=== PATIENT | female | born 1945 | race Caucasian/White ===

== ENCOUNTER 2018-06-22 01:55 | Inpatient (IN) | payer MEDICARE, MEDICAID ==
[~2018-06-22] VITALS: Ht 152.4 cm; Wt 72.6 kg
[2018-06-22] MEDS ORDERED: DEXTROSE 5% WATER 1,000 ML IV ONE (02:30)
[2018-06-22] MEDS ORDERED: NITROGLYCERIN 0.4MG TABLET SL SL PRN ×2 (02:30→08:30)
[2018-06-22] MEDS ORDERED: ASPIRIN 81MG TABLET PO ONE (02:30)
[2018-06-22 02:57] LABS: BASOPHILS % 0.3 % (0.0-2.0); EOSINOPHILS % 0.4 % (0.0-5.0); HEMOGLOBIN. 10.6 g/dL (12.0-16.0); LYMPHOCYTES % 8.1 % (20.0-50.0); MEAN CORPUSCULAR HEMOGLOBIN 28.2 pg (28.0-32.0); MEAN CORPUSCULAR VOLUME 84.5 fL (81.0-99.0); MEAN PLATELET VOLUME 7.9 fl (7.4-10.4); NEUTROPHILS % 86.2 % (40.0-76.0); PLATELET 269 x1000/uL (130-400); RED BLOOD CELL COUNT 3.78 mill/uL (4.2-5.4); RED CELL DISTRIBUTION WIDTH 15.1 % (11.6-14.6)
[2018-06-22 03:03] LABS: CHLORIDE 100 mEq/L (98-107)
[2018-06-22] MEDS ORDERED: GUAIFENESIN 200MG/10ML SUGAR FREE UDC PO PRN (08:30)
[2018-06-22] MEDS ORDERED: IPRATROPIUM/ALBUTEROL 0.5-3(2.5)MG/3ML NEB INH PRN (08:30)
[2018-06-22] MEDS ORDERED: ENOXAPARIN 40MG/0.4ML SYR SUBCUT SCH (08:30)
[2018-06-22] MEDS ORDERED: DEXTROSE 50% WATER 50ML SYRINGE IV PRN (08:30)
[2018-06-22] MEDS ORDERED: DOCUSATE SODIUM 100MG CAPSULE PO PRN (08:30)
[2018-06-22] MEDS ORDERED: CLONIDINE 0.1MG TABLET PO PRN (08:30)
[2018-06-22] MEDS ORDERED: TRAMADOL 50MG TABLET PO PRN (08:30)
[2018-06-22] MEDS ORDERED: ACETAMINOPHEN 325MG TABLET PO PRN (08:30)
[2018-06-22] MEDS ORDERED: ONDANSETRON HCL 4MG/2ML INJ IV PRN (08:30)
[2018-06-22] MEDS ORDERED: MAGNESIUM/ALUMINUM HYDROXIDE/SIMETHICONE 30ML UDC PO PRN (08:30)
[2018-06-22 09:11] LABS: T4 FREE 1.38 ng/dL (0.76-1.46)
[2018-06-22] MEDS: BLOOD SUGAR DIAGNOSTIC STRIP TEST SCH ×4 (09:26→21:03)
[2018-06-22] MEDS: FAMOTIDINE 20MG TABLET PO SCH (09:28)
[2018-06-22] MEDS: ASPIRIN 325MG EC TABLET PO SCH (09:28)
[2018-06-22 09:30] VITALS: BP 143/94
[2018-06-22] MEDS: SODIUM CHLORIDE 0.9% 1,000 ML IV SCH (09:39)
[2018-06-22] MEDS: ENOXAPARIN 30MG/0.3ML SYR SUBCUT SCH (09:39)
[2018-06-22 10:25] LABS: FOLIC ACID (FOLATE) SERUM 18.7 ng/mL (>5.38)
[2018-06-22] MEDS ORDERED: LEVOFLOXACIN 500MG PREMIX 100 ML IV SCH (11:00)
[2018-06-22] MEDS: INSULIN LISPRO 100 UNITS/ML SUBCUT SCH ×3 (13:34→21:45)
[2018-06-22 13:40] VITALS: BP 140/49
[2018-06-22 15:36] VITALS: BP 132/51
[2018-06-22 17:54] LABS: CREATINE KINASE 75 IU/L (26-192)
[2018-06-22 17:59] LABS: CREATINE KINASE MB FRACTION 2.2 ng/mL (0.5-3.6)
[2018-06-22 20:00] VITALS: BP 146/54
[2018-06-22] MEDS ORDERED: HYDR-4135 PO (20:36)
[2018-06-22] MEDS ORDERED: ASPI-1079 PO (20:36)
[2018-06-22] MEDS ORDERED: AMLO10TA80 PO (20:36)
[2018-06-22] MEDS ORDERED: ATOR40TA70 PO (20:36)
[2018-06-22] MEDS ORDERED: FURO20TA4 PO (20:36)
[2018-06-22] MEDS ORDERED: LORA5SOL62 PO (20:36)
[2018-06-22] MEDS ORDERED: ZOLPIDEM TARTRATE 5MG TABLET PO PRN (21:00)
[2018-06-23 00:06] VITALS: BP 131/48
[2018-06-23 01:23] LABS: CREATINE KINASE 58 IU/L (26-192); CREATINE KINASE MB FRACTION 1.8 ng/mL (0.5-3.6)
[2018-06-23] MEDS: SODIUM CHLORIDE 0.9% 1,000 ML IV SCH ×2 (01:56→11:13)
[2018-06-23 04:00] VITALS: BP_SYST 148; BP_SYST 166; BP_DIAS 54; BP_DIAS 71
[2018-06-23 04:12] LABS: CLARITY URINE CLEAR (CLEAR); KETONES URINE NEGATIVE (NEGATIVE); LEUKOCYTE ESTERASE URINE 1+ (NEGATIVE); NITRITE URINE NEGATIVE (NEGATIVE); OCCULT BLOOD URINE NEGATIVE (NEGATIVE); PROTEIN URINE NEGATIVE (NEGATIVE); SPECIFIC GRAVITY URINE 1.006 (1.005-1.030); UROBILINOGEN URINE 0.2 E.U./dL (0.2-1.0)
[2018-06-23 04:18] LABS: COLOR URINE PALE YELLOW (YELLOW)
[2018-06-23 04:28] LABS: *COCAINE SCREEN URINE NEGATIVE (NEGATIVE); METHADONE URINE SCREEN NEGATIVE (NEGATIVE); OPIATES URINE SCREEN NEGATIVE (NEGATIVE)
[2018-06-23 04:29] LABS: *AMPHETAMINES SCREEN URINE NEGATIVE (NEGATIVE); *BARBITURATES SCREEN URINE NEGATIVE (NEGATIVE); *BENZODIAZEPINES SCREEN URINE NEGATIVE (NEGATIVE); CANNABINOID URINE SCREEN NEGATIVE (NEGATIVE); PHENCYCLIDINE URINE SCREEN NEGATIVE (NEGATIVE)
[2018-06-23] MEDS: BLOOD SUGAR DIAGNOSTIC STRIP TEST SCH ×4 (06:25→21:15)
[2018-06-23] MEDS: ASPIRIN 325MG EC TABLET PO SCH (08:33)
[2018-06-23] MEDS: ENOXAPARIN 30MG/0.3ML SYR SUBCUT SCH (08:33)
[2018-06-23] MEDS: INSULIN LISPRO 100 UNITS/ML SUBCUT SCH ×4 (08:42→21:20)
[2018-06-23] MEDS: FAMOTIDINE 20MG TABLET PO SCH (08:48)
[2018-06-23 11:56] VITALS: BP 142/54
[2018-06-23 15:24] VITALS: BP 148/64
[2018-06-23 20:00] VITALS: BP 148/67
[2018-06-24 03:38] VITALS: BP 147/43
[2018-06-24] MEDS: BLOOD SUGAR DIAGNOSTIC STRIP TEST SCH (06:22)
[2018-06-24 08:00] VITALS: BP 184/63
[2018-06-24] MEDS: ASPIRIN 325MG EC TABLET PO SCH (08:12)
[2018-06-24] MEDS: FAMOTIDINE 20MG TABLET PO SCH (08:13)
[2018-06-24] MEDS: ENOXAPARIN 30MG/0.3ML SYR SUBCUT SCH (08:13)
[2018-06-24] MEDS: INSULIN LISPRO 100 UNITS/ML SUBCUT SCH (08:17)
[2018-06-24] MEDS ORDERED: LEVOFLOXACIN 250MG PREMIX 50 ML IV SCH (11:00)
[2018-06-24 11:41] VITALS: BP 124/52
== END 2018-06-24 12:54 | disposition home health service (06) | DRG 682 ==
LOC: ER 01:55 → 6WST 05:19 → EDBEDREQTM 05:19 → EDBEDREQ 05:19 → ENRESERV 07:46 → SUPCPDRO 08:21
PROVIDERS: ADMIT Internal Medicine; ATTEND Internal Medicine
DX: N17.0 Acute kidney failure with tubular necrosis (principal); G92 Toxic encephalopathy; E87.1 Hypo-osmolality and hyponatremia; N39.0 Urinary tract infection, site not specified; B95.2 Enterococcus as the cause of diseases classified elsewhere; E11.649 Type 2 diabetes mellitus with hypoglycemia without coma; I10 Essential (primary) hypertension; Z87.440 Personal history of urinary (tract) infections
CPT/HCPCS: 36415; 71045; 76770; 80061; 80305; 82550; 82553; 82607; 82746; 82962; 83036; 83540; 83550; 83605; 83880; 84439; 84443; 84484; 87077; 87186; 93005; 93306; 93970; 96374; 97162; 97166; 99285; J1650; J1815; J1956; J7070